=== PATIENT | female | born 1990 | race African-American/Black ===

== ENCOUNTER 2018-05-06 14:14 | Emergency (ER) | payer BC, OTHER ==
[~2018-05-06] VITALS: Ht 162.6 cm; Wt 86.2 kg
[~2018-05-06 14:14] MED LIST: ERYT1OIN6 OD
[2018-05-06] MEDS: IV NORMAL SALINE 1,000ML 1,000 ML IV SCH (15:01)
[2018-05-06] MEDS: ONDANSETRON PF 4 MG/2 ML VIAL. IV ONE (15:02)
[2018-05-06 15:11] LABS: BASO % 0 % (0-3); EOS % 0 % (0-3); HEMATOCRIT 37.2 % (36.0-47.0); HEMOGLOBIN 12.3 g/dL (12.0-15.5); LYMPH # 0.5 x10^3/uL (1.0-4.8); LYMPH % 3 % (24-48); MEAN CORPUSCULAR HEMOGLOBIN 29 pg (25-35); MEAN CORPUSCULAR HGB CONC 33 g/dL (31-37); MEAN CORPUSCULAR VOLUME 88 fL (79-100); MONO # 0.2 x10^3/uL (0.0-1.1); MONO % 1 % (0-9); NEUT # 15.9 x10^3uL (1.8-7.7); NEUT % 95 % (31-73); PLATELET COUNT 203 x10^3/uL (140-400); RED BLOOD COUNT 4.21 x10^6/uL (3.50-5.40); RED CELL DISTRIBUTION WIDTH 14.1 % (11.5-14.5); WHITE BLOOD COUNT 16.6 x10^3/uL (4.0-11.0)
--- NOTE | 2018-05-06 15:15 | PHYS DOC ---
Past History Past Medical History: Other Past Surgical History: Other Alcohol Use: None Drug Use: None Adult General Chief Complaint Chief Complaint: ABDOMINAL PAIN HPI HPI Patient is a 27-year-old female who presents with complaint of lower abdominal pain. Patient states that pain started yesterday and she was seen over at [facility] yesterday. She states that she was diagnosed with a UTI. Patient was prescribed ibuprofen and an antibiotic but she states that that is not helping with her pain. She rates pain at a 9 out of 10 and states the pain radiates up to the top of her abdomen and into her back. She denies any fever. She does indicate that she has been nauseated but has had no vomiting. She does admit to some constipation and states that her last bowel movement was yesterday. Review of Systems Review of Systems Constitutional: Denies fever or chills [] Respiratory: Denies cough or shortness of breath [] Cardiovascular: No additional information not addressed in HPI [] GI: Complains of abdominal pain with nausea. Denies vomiting or diarrhea [] : Complains of dysuria. [] Musculoskeletal: Complains of lower back pain [] All other systems were reviewed and found to be within normal limits, except as documented in this note. Current Medications Current Medications Current Medications Medications (Trade) Dose Ordered Sig/Bobbi Start Time Stop Time Status Last Admin Dose Admin Fentanyl Citrate (Fentanyl 2ml Vial) 25 mcg 1X ONCE 05/06/18 15:15 05/06/18 15:16 05/06/18 15:04 25 MCG Ondansetron HCl (Zofran) 4 mg 1X ONCE 05/06/18 15:15 05/06/18 15:16 05/06/18 15:02 4 MG Sodium Chloride 1,000 ml @ 1,000 mls/hr Q1H 05/06/18 14:45 05/06/18 15:44 05/06/18 15:01 1,000 MLS/HR Allergies Allergies Allergies Coded Allergies Type Severity Reaction Last Updated Verified Sulfa (Sulfonamide Antibiotics) Allergy Unknown 12/02/15 Yes lorazepam Allergy Unknown 12/02/15 Yes morphine Allergy Unknown 12/02/15 Yes oxycodone Allergy Unknown 12/02/15 Yes Physical Exam Physical Exam Constitutional: Well developed, well nourished, no acute distress, non-toxic appearance. [] HENT: Normocephalic, atraumatic, bilateral external ears normal, oropharynx moist, no oral exudates, nose normal. [] Eyes: PERRLA, EOMI, conjunctiva normal, no discharge. [] Neck: Normal range of motion, no tenderness, supple. [] Cardiovascular: Regular rate and rhythm [] Lungs & Thorax: Bilateral breath sounds clear to auscultation [] Abdomen: Bowel sounds normal, soft, with lower abdominal tenderness. [] Skin: Warm, dry, no erythema, no rash. [] Extremities: No tenderness, no cyanosis, no clubbing, ROM intact, no edema. [] Neurologic: Alert and oriented X 3, no focal deficits noted. [] Current Patient Data Vital Signs Vital Signs Date Time Temp Pulse Resp B/P (MAP) Pulse Ox O2 Delivery O2 Flow Rate FiO2 05/06/18 15:04 18 Room Air 05/06/18 14:59 101 97/59 (72) 100 05/06/18 14:15 99.3 EKG EKG [] Radiology/Procedures Radiology/Procedures [] Impressions: PROCEDURE: CT ABD PELV W/ IV CONTRST ONLY PQRS Compliance statement: One or more of the following individualized dose reduction techniques were utilized for this examination: 1. Automated exposure control. 2. Adjustment of the mA and/or kV according to patient size. 3. Use of iterative reconstruction technique. Indication:SEVERE UMBILICAL AND PELVIC PAIN X 2 DAYS, CONSTIPATION, nausea and vomiting TECHNIQUE: CT abdomen and pelvis with IV contrast with multiplanar reformats. COMPARISON: Previous exam from 01/29/2008 FINDINGS: Heart is normal in size. No pericardial or pleural effusion. Clear lung bases. Liver, spleen, gallbladder, pancreas, adrenals and kidneys are within normal limits. No enlarged retroperitoneal or pelvic adenopathy. No free pelvic fluid or ascites. Large amount of stool burden is seen in the distal colon. Nonspecific fluid-filled proximal colon and distal small bowel loops are seen. No bowel obstruction. No pneumoperitoneum or pneumatosis intestinalis. Anteverted uterus. Urinary bladder is within normal limits. Bilateral ovaries are seen with multiple follicles. Appendix is not visualized. No suspicious bony lesion. IMPRESSION: 1. Large amount of distal colonic stool burden, patient may be constipated. No bowel obstruction. 2. Appendix is not visualized. Electronically signed by: Shabbir Schaeffer DO (05/06/2018 4:31 PM) [facility] Course & Med Decision Making Course & Med Decision Making Pertinent Labs and Imaging studies reviewed. (See chart for details) [] Dragon Disclaimer Dragon Disclaimer This electronic medical record was generated, in whole or in part, using a voice recognition dictation system. Departure Departure: Impression: Primary Impression: Lower abdominal pain Additional Impressions: Constipation Urinary tract infection Disposition: HOME, SELF-CARE Condition: STABLE Referrals: EDD MATAMOROS (PCP) Patient Instructions: Abdominal Pain, Constipation, Adult, Urinary Tract Infection Scripts Ondansetron Hcl (ZOFRAN) 4 Mg Tablet 1 TAB PO Q8HRS PRN for NAUSEA, #12 TAB Prov: ESTEFANIA HERNÁNDEZ Jr. DO 05/06/18 Tramadol Hcl (TRAMADOL HCL) 50 Mg Tablet 50 MG PO PRN Q6HRS PRN for PAIN, #12 TAB Prov: ESTEFANIA HERNÁNDEZ Jr. DO 05/06/18 Lactulose (LACTULOSE) 10 Gm/15 Ml Solution 30 ML PO DAILYWBKFT PRN for CONSTIPATION, #900 ML Prov: ESTEFANIA HERNÁNDEZ Jr. DO 05/06/18 Problem Qualifiers Additional Impressions: Constipation Constipation type: unspecified constipation type Qualified Codes: K59.00 - Constipation, unspecified Urinary tract infection Urinary tract infection type: site unspecified Hematuria presence: without hematuria Qualified Codes: N39.0 - Urinary tract infection, site not specified ESTEFANIA HERNÁNDEZ Jr. DO May 06, 2018 15:15
[2018-05-06 15:22] LABS: ALBUMIN 3.5 g/dL (3.4-5.0); ALBUMIN/GLOBULIN RATIO 0.9 (1.0-1.7); CALCIUM 8.6 mg/dL (8.5-10.1); GFR 81.1; TOTAL BILIRUBIN 1.5 mg/dL (0.2-1.0); TOTAL PROTEIN 7.4 g/dL (6.4-8.2)
[2018-05-06 15:28] LABS: POTASSIUM 3.3 mmol/L (3.5-5.1)
[2018-05-06 15:39] LABS: % BANDS 17 % (0-9); % LYMPHS 9 % (24-48); % METAS 1 % (0-0); % SEGS 73 % (35-66); PLATELET CLUMP PRESENT; PLT ESTIMATE ADEQUATE (ADEQUATE)
[2018-05-06 15:41] LABS: TOXIC GRANULATION PRESENT
[2018-05-06 15:42] LABS: TOXIC VACUOLATION PRESENT
[2018-05-06] MEDS: IOHEXOL 300 MG/ML 75 ML VIAL. IV ONE (16:14)
[2018-05-06 16:26] LABS: BILIRUBIN,URINE NEG (NEG); CLARITY,URINE CLOUDY; COLOR,URINE AMBER; GLUCOSE,URINE NEG (NEG); NITRITE,URINE NEG (NEG); UROBILINOGEN,URINE 0.2 mg/dL (0.2 mg/dL)
[2018-05-06 16:27] LABS: BACTERIA,URINE FEW /HPF (0-FEW); RBC,URINE OCC /HPF (0-2); SQUAMOUS EPITHELIAL CELL,UR OCC /LPF
--- NOTE | 2018-05-06 16:35 | RAD ---
PQRS Compliance statement: One or more of the following individualized dose reduction techniques were utilized for this examination: 1. Automated exposure control. 2. Adjustment of the mA and/or kV according to patient size. 3. Use of iterative reconstruction technique. Indication:SEVERE UMBILICAL AND PELVIC PAIN X 2 DAYS, CONSTIPATION, nausea and vomiting TECHNIQUE: CT abdomen and pelvis with IV contrast with multiplanar reformats. COMPARISON: Previous exam from 01/29/2008 FINDINGS: Heart is normal in size. No pericardial or pleural effusion. Clear lung bases. Liver, spleen, gallbladder, pancreas, adrenals and kidneys are within normal limits. No enlarged retroperitoneal or pelvic adenopathy. No free pelvic fluid or ascites. Large amount of stool burden is seen in the distal colon. Nonspecific fluid-filled proximal colon and distal small bowel loops are seen. No bowel obstruction. No pneumoperitoneum or pneumatosis intestinalis. Anteverted uterus. Urinary bladder is within normal limits. Bilateral ovaries are seen with multiple follicles. Appendix is not visualized. No suspicious bony lesion. IMPRESSION: 1. Large amount of distal colonic stool burden, patient may be constipated. No bowel obstruction. 2. Appendix is not visualized. Electronically signed by: Shabbir Schaeffer DO (05/06/2018 4:31 PM) [facility]
[2018-05-06] MEDS: KETOROLAC 30 MG/ML VIAL. IV ONE (16:47)
[2018-05-06] MEDS ORDERED: TRAM50TA PO (16:54)
[2018-05-06] MEDS ORDERED: ONDA4TAB7 PO (16:54)
[2018-05-06] MEDS ORDERED: LACT10SO PO (16:54)
[2018-05-06] MEDS: MAGNESIUM CITRATE 296 ML SOLUTION. PO ONE (17:09)
[2018-05-06 17:14] VITALS: BP 103/71
== END 2018-05-06 17:10 | disposition home or self-care (01) ==
LOC: ER 14:14
DX: N39.0 Urinary tract infection, site not specified (principal); K59.00 Constipation, unspecified; Z88.2 Allergy status to sulfonamides; Z88.5 Allergy status to narcotic agent; Z88.8 Allergy status to other drugs, medicaments and biological substances
CPT/HCPCS: 36415; 74177; 80053; 81001; 81025; 83690; 85007; 85025; 96374; 96375; 99284; J1885; J2405; J3010; Q9967; 87086; J7030

== ENCOUNTER 2018-05-09 09:56 | Emergency (ER) | payer BC ==
[~2018-05-09] VITALS: Ht 162.6 cm; Wt 84.8 kg
[~2018-05-09 09:56] MED LIST changes: +LACT10SO PO; +ONDA4TAB7 PO; +TRAM50TA PO
[2018-05-09] MEDS ORDERED: IV NORMAL SALINE 1,000ML 1,000 ML IV SCH (10:11)
[2018-05-09 10:15] VITALS: BP 143/79
[2018-05-09] MEDS ORDERED: IOHEXOL 240 MG/ML 50ML VIAL. ONE (10:41)
[2018-05-09 10:55] LABS: BASO # 0.1 x10^3/uL (0.0-0.2); BASO % 0 % (0-3); EOS # 0.4 x10^3/uL (0.0-0.7); EOS % 2 % (0-3); HEMATOCRIT 35.3 % (36.0-47.0); HEMOGLOBIN 11.8 g/dL (12.0-15.5); LYMPH # 0.9 x10^3/uL (1.0-4.8); LYMPH % 5 % (24-48); MEAN CORPUSCULAR HEMOGLOBIN 29 pg (25-35); MEAN CORPUSCULAR HGB CONC 34 g/dL (31-37); MEAN CORPUSCULAR VOLUME 87 fL (79-100); MONO # 1.7 x10^3/uL (0.0-1.1); MONO % 9 % (0-9); NEUT # 15.7 x10^3uL (1.8-7.7); NEUT % 83 % (31-73); PLATELET COUNT 258 x10^3/uL (140-400); RED BLOOD COUNT 4.05 x10^6/uL (3.50-5.40); RED CELL DISTRIBUTION WIDTH 13.9 % (11.5-14.5); WHITE BLOOD COUNT 18.8 x10^3/uL (4.0-11.0)
[2018-05-09] MEDS ORDERED: IOHEXOL 300 MG/ML 75 ML VIAL. IV ONE (11:00)
[2018-05-09] MEDS ORDERED: KETOROLAC 30 MG/ML VIAL. IV ONE (11:00)
[2018-05-09 11:05] LABS: ALBUMIN 2.5 g/dL (3.4-5.0); ALBUMIN/GLOBULIN RATIO 0.5 (1.0-1.7); CALCIUM 8.5 mg/dL (8.5-10.1); GFR 81.1; TOTAL BILIRUBIN 0.5 mg/dL (0.2-1.0); TOTAL PROTEIN 7.3 g/dL (6.4-8.2)
[2018-05-09 11:51] LABS: % BANDS 8 % (0-9); % BASOS 0 % (0-3); % EOS 1 % (0-5); % LYMPHS 7 % (24-48); % MONOS 3 % (0-10); % MYELOS 2 % (0-0); % SEGS 79 % (35-66); PLATELET CLUMP PRESENT; PLT ESTIMATE ADEQUATE (ADEQUATE); TOXIC VACUOLATION PRESENT
[2018-05-09 12:48] LABS: BILIRUBIN,URINE NEG (NEG); CLARITY,URINE HAZY; COLOR,URINE YELLOW; GLUCOSE,URINE NEG (NEG); NITRITE,URINE NEG (NEG); UROBILINOGEN,URINE 0.2 mg/dL (0.2 mg/dL)
[2018-05-09 12:49] LABS: BACTERIA,URINE FEW /HPF (0-FEW); RBC,URINE OCC /HPF (0-2); SQUAMOUS EPITHELIAL CELL,UR MOD /LPF; YEAST,URINE PRESENT /HPF
--- NOTE | 2018-05-09 12:57 | PHYS DOC ---
Past History Past Medical History: Other Past Surgical History: Other Alcohol Use: None Drug Use: None General Pediatric Assessment Chief Complaint Abdominal pain History of Present Illness Patient is a 27 year old female who presents with pinning of lower abdominal pain since May 05. Patient complaining of right lower quadrant pain since May 05 and was seen at [facility] and was treated with diagnosis of UTI. Patient was seen on May 06 in this emergency room and had white count of 16,[address] of abdomen and pelvis with diagnosis of constipation and unseen appendix and discharged home with diagnosis of constipation. Patient states she had several bowel movement after taking lactulose but her abdominal pain did not get better and was seen by her primary care physician today who sent patient to emergency room for evaluation of possible appendicitis because of a normal CT of abdomen 4 days ago. Patient complaining of anorexia and nausea without vomiting, fever and chills, vaginal bleeding or discharge, urinary symptom. Review of Systems Constitutional: Denies fever or chills [] Eyes: Denies change in visual acuity, redness, or eye pain [] HENT: Denies nasal congestion or sore throat [] Respiratory: Denies cough or shortness of breath [] Cardiovascular: No additional information not addressed in HPI [] GI: Reports abdominal pain, nausea, denies vomiting, bloody stools or diarrhea [ ] : Denies dysuria or hematuria [] Musculoskeletal: Denies back pain or joint pain [] Integument: Denies rash or skin lesions [] Neurologic: Denies headache, focal weakness or sensory changes [] Endocrine: Denies polyuria or polydipsia [] All other systems were reviewed and found to be within normal limits, except as documented in this note. Current Medications Current Medications Medications (Trade) Dose Ordered Sig/Bobbi Start Time Stop Time Status Last Admin Dose Admin Fentanyl Citrate (Fentanyl 2ml Vial) 50 mcg 1X ONCE 05/09/18 12:00 05/09/18 12:01 DC 05/09/18 12:33 50 MCG Iohexol (Omnipaque 240 Mg/ml) 50 ml STK-MED ONCE 05/09/18 10:41 05/09/18 10:43 DC Iohexol (Omnipaque 300 Mg/ml) 75 ml 1X ONCE 05/09/18 11:00 05/09/18 11:01 DC 05/09/18 11:47 75 ML Ketorolac Tromethamine (Toradol 30mg Vial) 30 mg 1X ONCE 05/09/18 11:00 05/09/18 11:01 DC 05/09/18 10:43 30 MG Sodium Chloride 1,000 ml @ 1,000 mls/hr Q1H 05/09/18 10:11 05/09/18 11:10 DC 05/09/18 10:41 1,000 MLS/HR Allergies Allergies Coded Allergies Type Severity Reaction Last Updated Verified Sulfa (Sulfonamide Antibiotics) Allergy Unknown 05/06/18 Yes lorazepam Allergy Unknown 12/02/15 Yes morphine Allergy Unknown 12/02/15 Yes oxycodone Allergy Unknown 12/02/15 Yes Physical Exam Constitutional: Well developed, well nourished, moderate distress, non-toxic appearance. HENT: Normocephalic, atraumatic, dry oral mucosa, no oral exudates, nose normal. Eyes: PERLL, EOMI, conjunctiva normal, no discharge. Neck: Normal range of motion, no tenderness, supple, no stridor. Cardiovascular: Normal heart rate, normal rhythm, no murmurs, no rubs, no gallops. Thorax and Lungs: Normal breath sounds, no respiratory distress, no wheezing, no chest tenderness, no retractions, no accessory muscle use. Abdomen: Bowel sounds normal, mildly distended abdomen with generalized guarding and tenderness with more tenderness in the right lower quadrant rebound tenderness Skin: Warm, dry, no erythema, no rash. Back: No tenderness, no CVA tenderness. Extremeties: Intact distal pulses, no tenderness, no cyanosis, no clubbing, ROM intact, no edema. Musculoskeletal: Good ROM in all major joints, no tenderness to palpation or major deformities noted. Neurologic: Alert and oriented X 3, normal motor function, normal sensory function, no focal deficits noted. Psychologic: Affect normal, judgement normal, mood normal. Radiology/Procedures [address] [address] IMAGING REPORT Signed PATIENT: ISMAEL GALLEGOS ACCOUNT: [id number] : 1990 LOCATION: ER AGE: 27 SEX: F EXAM STATUS: REG ER ORD. PHYSICIAN: MICHAEL LOGAN MD REASON: lOWER ABDOMINAL AND PELVIC PAIN, WATERY STOOLS X 2 DAYS PROCEDURE: CT ABD PELV W/ORAL&IV CONTRAST Examination: CT ABD PELV W/ORAL IV CONTRAST History: WATERY STOOL SINCE SATURDAY, LOWER ABDOMEN AND PELVIC PAIN
GAVE OMNI 300 75ML IV AND OMNI 240 30ML ORAL Comparison/Correlation: 05/06/2018 CT abdomen pelvis with contrast Findings: Axial images of the abdomen and pelvis were obtained following IV contrast. Oral contrast was also utilized. Bibasilar costophrenic sulcus linear atelectasis is noted. Liver, spleen, pancreas, adrenal glands, and kidneys are normal. Contrast is identified within the stomach and proximal jejunum. Significantly distended loops of jejunum noted. Transition point is suggested within the lower pelvis is present. Distal collapsed small bowel loops are present. Moderate quantity of stool is present within the ascending colon. Appendix is not definitely delineated. Small amount of pelvic free fluid is present. Subtle rim enhancement is questioned involving this pelvic fluid. Urinary bladder is mostly decompressed. Adnexal follicles bilaterally are present in physiologic in appearance. Fluid is noted within the lower intraperitoneal cavity subjacent to the cecum along the lower left pelvic side wall. No extraluminal gas. No enlarged abdominal or pelvic lymph nodes. Bony structures are unremarkable for the patient's age. Impression: Interval development of small bowel obstruction with transition point within the mid pelvis. Ascites is noted subjacent to the cecum extending along the pelvic sidewall. Pelvic free fluid is present. Subtle rim enhancement. Underlying infectious etiology is questioned. Electronically signed by: Jefe Soares MD (05/09/2018 12:13 PM) [id number] DICTATED AND SIGNED BY: JEFE SOARES MD DATE: 05/09/18 1158 CC: MICHAEL LOGAN MD; EDD MATAMOROS ~ Current Patient Data Laboratory Tests Test 05/09/18 10:30 05/09/18 12:20 05/09/18 12:25 White Blood Count 18.8 x10^3/uL (4.0-11.0) H Red Blood Count 4.05 x10^6/uL (3.50-5.40) Hemoglobin 11.8 g/dL (12.0-15.5) L Hematocrit 35.3 % (36.0-47.0) L Mean Corpuscular Volume 87 fL (79-100) Mean Corpuscular Hemoglobin 29 pg (25-35) Mean Corpuscular Hemoglobin Concent 34 g/dL (31-37) Red Cell Distribution Width 13.9 % (11.5-14.5) Platelet Count 258 x10^3/uL (140-400) Neutrophils (%) (Auto) 83 % (31-73) H Lymphocytes (%) (Auto) 5 % (24-48) L Monocytes (%) (Auto) 9 % (0-9) Eosinophils (%) (Auto) 2 % (0-3) Basophils (%) (Auto) 0 % (0-3) Neutrophils # (Auto) 15.7 x10^3uL (1.8-7.7) H Lymphocytes # (Auto) 0.9 x10^3/uL (1.0-4.8) L Monocytes # (Auto) 1.7 x10^3/uL (0.0-1.1) H Eosinophils # (Auto) 0.4 x10^3/uL (0.0-0.7) Basophils # (Auto) 0.1 x10^3/uL (0.0-0.2) Segmented Neutrophils % 79 % (35-66) H Band Neutrophils % 8 % (0-9) Lymphocytes % 7 % (24-48) L Monocytes % 3 % (0-10) Eosinophils % 1 % (0-5) Basophils % 0 % (0-3) Myelocytes % 2 % (0-0) H Toxic Vacuolation Present Platelet Estimate Adequate (ADEQUATE) Platelet Clumps, EDTA Present Sodium Level 136 mmol/L (136-145) Potassium Level 3.0 mmol/L (3.5-5.1) L Chloride Level 100 mmol/L (98-107) Carbon Dioxide Level 27 mmol/L (21-32) Anion Gap 9 (6-14) Blood Urea Nitrogen 18 mg/dL (7-20) Creatinine 1.0 mg/dL (0.6-1.0) Estimated GFR (Cockcroft-Gault) 81.1 BUN/Creatinine Ratio 18 (6-20) Glucose Level 84 mg/dL (70-99) Calcium Level 8.5 mg/dL (8.5-10.1) Total Bilirubin 0.5 mg/dL (0.2-1.0) Aspartate Amino Transf (AST/SGOT) 10 U/L (15-37) L Alanine Aminotransferase (ALT/SGPT) 13 U/L (14-59) L Alkaline Phosphatase 59 U/L (46-116) Total Protein 7.3 g/dL (6.4-8.2) Albumin 2.5 g/dL (3.4-5.0) L Albumin/Globulin Ratio 0.5 (1.0-1.7) L Lipase 88 U/L (73-393) Urine Collection Type Unknown Urine Color Yellow Urine Clarity Hazy Urine pH 6.0 Urine Specific [place] 1.020 Urine Protein 100 mg/dl (NEG-TRACE) Urine Glucose (UA) Neg mg/dL (NEG) Urine Ketones (Stick) Neg mg/dL (NEG) Urine Blood Trace (NEG) Urine Nitrite Neg (NEG) Urine Bilirubin Neg (NEG) Urine Urobilinogen Dipstick 0.2 mg/dL (0.2 mg/dL) Urine Leukocyte Esterase Neg (NEG) Urine RBC Occ /HPF (0-2) Urine WBC 1-4 /HPF (0-4) Urine Squamous Epithelial Cells Mod /LPF Urine Bacteria Few /HPF (0-FEW) Urine Yeast Present /HPF Bedside Urine HCG, Qualitative hcg negative (Negative) Active Scripts Medications Dose Route/Sig Max Daily Dose Days Date Category Zofran (Ondansetron Hcl) 4 Mg Tablet 1 Tab PO Q8HRS PRN 05/06/18 Rx Tramadol Hcl (Tramadol HCl) 50 Mg Tablet 50 Mg PO PRN Q6HRS PRN 05/06/18 Rx Lactulose 10 Gm/15 Ml Solution 30 Ml PO DAILYWBKFT PRN 05/06/18 Rx Erythromycin (Erythromycin Base) 3.5 Gm Oint...g. 1 Huma OD QID 4 12/02/15 Rx Vital Signs Date Time Temp Pulse Resp B/P (MAP) Pulse Ox O2 Delivery O2 Flow Rate FiO2 05/09/18 10:15 98.7 83 20 97 Room Air 05/09/18 12:33 0.0 Vital Signs Date Time Temp Pulse Resp B/P (MAP) Pulse Ox O2 Delivery O2 Flow Rate FiO2 05/09/18 12:33 18 96 Room Air 0.0 05/09/18 10:15 98.7 83 20 97 Room Air Vital Signs Date Time Temp Pulse Resp B/P (MAP) Pulse Ox O2 Delivery O2 Flow Rate FiO2 05/09/18 12:33 18 96 Room Air 0.0 05/09/18 10:15 98.7 83 Course & Med Decision Making Pertinent Labs and Imaging studies reviewed. (See chart for details) Evolution of patient in ER showed 27-year-old female patient with right lower quadrant pain for several days and several ER and doctors visits. patient had white count of 18,000 with generalized abdominal tenderness and guarding. CT of abdomen and pelvis did not show appendix but showing small bowel obstruction and free fluid in pelvis and ascites. Dr. Pitt accepted admission to [facility] at [address]36. Dr. Hackett on-call surgeon was consulted at 1251 and agreed with plan of transfer. Departure Departure: Impression: Primary Impression: Lower abdominal pain Disposition: 02 XFER [facility] (to [facility] at 1237) Admitting Physician: Javier Pitt (accepted transfer to [facility] at 1236) Condition: GUARDED Referrals: EDD MATAMOROS (PCP) MICHAEL LOGAN MD May 09, 2018 12:57
[2018-05-09] MEDS ORDERED: IV NORMAL SALINE 50ML 50 ML ONE (13:27)
[2018-05-09] MEDS ORDERED: PIPERACILLIN/TAZOBACTAM 3.375 GM VIAL IV ONE (13:27)
[2018-05-09] MEDS ORDERED: PIPERACILLIN/TAZOBACTAM 3.375 GM in IV NORMAL SALINE 50ML 50 ML IV ONE (13:45)
--- NOTE | 2018-05-09 13:58 | RAD ---
Examination: CT ABD PELV W/ORAL IV CONTRAST History: WATERY STOOL SINCE SATURDAY, LOWER ABDOMEN AND PELVIC PAIN
GAVE OMNI 300 75ML IV AND OMNI 240 30ML ORAL Comparison/Correlation: 05/06/2018 CT abdomen pelvis with contrast Findings: Axial images of the abdomen and pelvis were obtained following IV contrast. Oral contrast was also utilized. Bibasilar costophrenic sulcus linear atelectasis is noted. Liver, spleen, pancreas, adrenal glands, and kidneys are normal. Contrast is identified within the stomach and proximal jejunum. Significantly distended loops of jejunum noted. Transition point is suggested within the lower pelvis is present. Distal collapsed small bowel loops are present. Moderate quantity of stool is present within the ascending colon. Appendix is not definitely delineated. Small amount of pelvic free fluid is present. Subtle rim enhancement is questioned involving this pelvic fluid. Urinary bladder is mostly decompressed. Adnexal follicles bilaterally are present in physiologic in appearance. Fluid is noted within the lower intraperitoneal cavity subjacent to the cecum along the lower left pelvic side wall. No extraluminal gas. No enlarged abdominal or pelvic lymph nodes. Bony structures are unremarkable for the patient's age. Impression: Interval development of small bowel obstruction with transition point within the mid pelvis. Ascites is noted subjacent to the cecum extending along the pelvic sidewall. Pelvic free fluid is present. Subtle rim enhancement. Underlying infectious etiology is questioned. Electronically signed by: Jefe Little MD (05/09/2018 12:13 PM) [id number]
== END 2018-05-09 13:40 | disposition short-term general hospital (02) ==
LOC: ER 09:56
DX: R10.31 Right lower quadrant pain (principal); R10.84 Generalized abdominal pain; R19.7 Diarrhea, unspecified; K56.609 Unspecified intestinal obstruction, unspecified as to partial versus complete obstruction; R18.8 Other ascites; Z88.2 Allergy status to sulfonamides; Z88.5 Allergy status to narcotic agent; Z88.8 Allergy status to other drugs, medicaments and biological substances
CPT/HCPCS: 36415; 74177; 80053; 81001; 81025; 83690; 85007; 85025; 96361; 96374; 96375; 96376; 99285; J1885; J2543; J3010; Q9967; 96365; J7030

== ENCOUNTER → 2020-08-02 | Outpatient (CLI) | payer BC ==
[~2020-08-02] MED LIST changes: -LACT10SO PO; +LACT10SO2 PO
--- NOTE | 2020-08-02 17:00 | RAD ---
EXAM: First Trimester OB Ultrasound INDICATION: Reason: 1ST TRIMESTER PREG, UNSURE OF DATES / Spl. Instructions: / History: TECHNIQUE: Real-time first trimester obstetrical ultrasound was performed with permanent freeze-frame documentation. Transabdominal and endovaginal ultrasound was performed. COMPARISON: None. FINDINGS: GESTATIONAL SAC: Gestational sac shape and amniotic fluid volume within normal limits. POLE: pole not well seen. Yolk sac visualized. CROWN RUMP LENGTH: Not well seen HEART RATE: Not well seen PLACENTA: Too early to adequately assess. MATERNAL UTERUS: Unremarkable. It measures 7.6 x 4.4 x 3.5 cm. MATERNAL ADNEXA: Unremarkable. Small amount of simple pelvic free fluid in the cul-de-sac is noted. Right ovary measures 3.2 x 2.4 x 2.4 cm and demonstrates normal flow. Left ovary measures 4.0 x 2.7 x 2.6 cm and demonstrates normal flow. AGE/DATES: Gestational Age by LMP: Unknown Gestational Age by US: 5 weeks 5 days EDC by LMP: Unknown EDC by US: 03/30/2021 IMPRESSION: Intrauterine gestation with yolk sac but no pole identified, likely due to early gestation. Estimated gestational age of 5 weeks 5 days and EDC of 03/30/2021. Electronically signed by: Adolfo Jaquez MD (08/02/2020 4:58 PM) [id number]
== END ==
LOC: US 10:47
PROVIDERS: ATTEND Obstetrics & Gynecology
DX: Z34.91 Encounter for supervision of normal pregnancy, unspecified, first trimester (principal); Z3A.01 Less than 8 weeks gestation of pregnancy
CPT/HCPCS: 76801; 76817

== ENCOUNTER → 2020-10-18 | Outpatient (CLI) | payer BC | LOC: LAB 15:33 | PROVIDERS: ATTEND Obstetrics & Gynecology | DX: Z34.92 Encounter for supervision of normal pregnancy, unspecified, second trimester (principal) | CPT/HCPCS: 36415; 81511; 86850; 86900; 86901 ==

== ENCOUNTER → 2020-11-17 | Outpatient (CLI) | payer BC ==
--- NOTE | 2020-11-18 17:42 | RAD ---
Exam performed: OB sonogram second trimester. Indication: Anatomical scan. Date of Service: 11/17/2020 Comparison: None available. Technique: Transabdominal . Findings: Single intrauterine fetus is seen in cephalic presentation. The maturity is as follows. BPD 4.9 cm 21 weeks 0 days Head circumference 17.73 cm 20 weeks 1 day Abdominal circumference 16.32 cm 21 weeks 3 days Femur length 3.57 cm 21 weeks 2 days HC to AC ratio is 1.09 (between 1.09 and 1.26) Estimated weight is 408 grams. The composite maturity is 21 weeks and 0 days with a sonographic EDC of 03/30/2021 There is adequate amniotic fluid volume with ELIANE of 18.5 cm. The cervical length measures 3.7cm. heart rate measures 136 beats per minute. Normal movement and cardiac activity seen. Normal four-chamber heart is seen Normal three-vessel cord is seen. Abdominal wall cord insertion is normal Fluid-filled stomach and urinary bladder are seen. Bilateral kidneys are normal. Normal craniocervical junction and entire spine is identified Placenta is posterior, no previa Impression: Single live intrauterine fetus in cephalic presentation of maturity 21 weeks and 0 days with no defin ite abnormality Electronically signed by: Bailye Cervantes MD (11/18/2020 5:40 PM) [facility]
== END ==
LOC: US 14:46
PROVIDERS: ATTEND Obstetrics & Gynecology
DX: Z34.92 Encounter for supervision of normal pregnancy, unspecified, second trimester (principal); Z3A.21 21 weeks gestation of pregnancy
CPT/HCPCS: 76805

== ENCOUNTER 2020-12-27 01:51 | Emergency (ER) | payer BC ==
[~2020-12-27] VITALS: Ht 162.6 cm; Wt 89.0 kg
[~2020-12-27 01:51] MED LIST changes: +ERYT1OIN3 OD; -ERYT1OIN6 OD
[2020-12-27 03:09] VITALS: BP 117/68
--- NOTE | 2020-12-27 05:52 | PHYS DOC ---
Past History Past Medical History: Other Past Surgical History: No Surgical History Alcohol Use: None Drug Use: None Adult General Chief Complaint Chief Complaint: CONSTIPATION HPI HPI Patient is a 30 year old female who presents with constipation. She is 25 weeks and has been having constipation for the last couple of weeks. She is taken 1 dose of Dulcolax and Colace about an hour prior to arrival but no relief. She otherwise has slight fullness in the abdomen but no real abdominal acute pain. She denies any dysuria. She denies any vaginal bleeding or discharge. She states that the has been normal thus far. She denies any fever, cough, back pain, nausea or vomiting. She denies any diarrhea. Review of Systems Review of Systems Constitutional: Denies fever or chills [] Eyes: Denies change in visual acuity, redness, or eye pain [] HENT: Denies nasal congestion or sore throat [] Respiratory: Denies cough or shortness of breath [] Cardiovascular: No additional information not addressed in HPI [] GI: Denies abdominal pain, nausea, vomiting, bloody stools or diarrhea [] : Denies dysuria or hematuria [] Musculoskeletal: Denies back pain or joint pain [] Integument: Denies rash or skin lesions [] Neurologic: Denies headache, focal weakness or sensory changes [] All other systems were reviewed and found to be within normal limits, except as documented in this note. Allergies Allergies Allergies Coded Allergies Type Severity Reaction Last Updated Verified Sulfa (Sulfonamide Antibiotics) Allergy Unknown 05/06/18 Yes lorazepam Allergy Unknown 12/02/15 Yes morphine Allergy Unknown 12/02/15 Yes oxycodone Allergy Unknown 12/02/15 Yes Physical Exam Physical Exam Constitutional: no acute distress HENT: Normocephalic, atraumatic, bilateral external ears emory Eyes: PERRLA, EOMI, conjunctiva normal, no discharge. Neck: Normal range of motion, no tenderness, supple, no stridor. Cardiovascular:Heart rate regular rhythm, no murmur [] Lungs & Thorax: Bilateral breath sounds clear to auscultation [] Abdomen: Gravid but nontender, bowel sounds are present and normal. Skin: Warm, dry, no erythema, no rash. [] Back: No tenderness, no CVA tenderness. Extremities: No tenderness, no cyanosis, no clubbing, ROM intact, no edema. [] Neurologic: Alert and oriented X 3, normal motor function, normal sensory function, no focal deficits noted. Current Patient Data Vital Signs Vital Signs Date Time Temp Pulse Resp B/P (MAP) Pulse Ox O2 Delivery O2 Flow Rate FiO2 12/27/20 03:09 97 18 117/68 (84) 98 Room Air 12/27/20 02:02 98.2 EKG EKG [] Radiology/Procedures Radiology/Procedures [] Heart Score C/O Chest Pain: No Risk Factors: Risk Factors: DM, Current or recent (<one month) smoker, HTN, HLP, family history of CAD, obesity. Risk Scores: Risk Factors: DM, Current or recent (<one month) smoker, HTN, HLP, family history of CAD, obesity. Course & Med Decision Making Course & Med Decision Making Patient presented with constipation while being . She is taking just 1 dose of laxative at home prior to arrival. She is hemodynamically stable and I do not believe that she requires any further work-up. I have instructed her to take additional dose of Dulcolax and if need to enema at home. If she needs further help she can call her [employer]IC[employer] physician or come back to the emergency department. She was discharged in stable condition. Dragon Disclaimer Dragon Disclaimer This electronic medical record was generated, in whole or in part, using a voice recognition dictation system. Departure Departure: Impression: Primary Impression: Constipation during Disposition: 01 HOME / SELF CARE / HOMELESS Condition: STABLE Patient Instructions: Constipation, Adult Additional Instructions: you should take additional 2 tablets of dulcolax and if that does not help, give your self an enema. If further problems, call your OB doctor or come back to ER Problem Qualifiers Primary Impression: Constipation during Trimester: second trimester Qualified Codes: O99.612 - Diseases of the digestive system complicating , second trimester; K59.00 - Constipation, unspecified EMELINA COSTELLO MD Dec 27, 2020 05:52
== END 2020-12-27 03:10 | disposition home or self-care (01) ==
LOC: ER 01:51
DX: O99.612 Diseases of the digestive system complicating pregnancy, second trimester (principal); K59.00 Constipation, unspecified; Z3A.25 25 weeks gestation of pregnancy; Z88.5 Allergy status to narcotic agent; Z88.2 Allergy status to sulfonamides; Z88.8 Allergy status to other drugs, medicaments and biological substances
CPT/HCPCS: 99282

== ENCOUNTER → 2021-01-13 | Outpatient (CLI) | payer BC ==
[2020-12-27 03:09] VITALS: BP 117/68
[2021-01-13 15:22] LABS: BASO % 0 % (0-3); EOS # 0.2 x10^3/uL (0.0-0.7); EOS % 2 % (0-3); HEMATOCRIT 34.2 % (36.0-47.0); HEMOGLOBIN 11.6 g/dL (12.0-15.5); LYMPH # 1.6 x10^3/uL (1.0-4.8); LYMPH % 19 % (24-48); MEAN CORPUSCULAR HEMOGLOBIN 31 pg (25-35); MEAN CORPUSCULAR HGB CONC 34 g/dL (31-37); MEAN CORPUSCULAR VOLUME 91 fL (79-100); MONO # 0.6 x10^3/uL (0.0-1.1); MONO % 7 % (0-9); NEUT # 6.1 x10^3uL (1.8-7.7); NEUT % 72 % (31-73); PLATELET COUNT 179 x10^3/uL (140-400); RED BLOOD COUNT 3.74 x10^6/uL (3.50-5.40); RED CELL DISTRIBUTION WIDTH 13.3 % (11.5-14.5); WHITE BLOOD COUNT 8.5 x10^3/uL (4.0-11.0)
== END ==
LOC: LAB 13:36
PROVIDERS: ATTEND Obstetrics & Gynecology
DX: Z34.93 Encounter for supervision of normal pregnancy, unspecified, third trimester (principal); Z3A.00 Weeks of gestation of pregnancy not specified
CPT/HCPCS: 36415; 82950; 85025

== ENCOUNTER → 2021-02-14 | Outpatient (CLI) | payer BC ==
[2021-02-14 16:54] LABS: BASO % 0 % (0-3); EOS # 0.2 x10^3/uL (0.0-0.7); EOS % 2 % (0-3); HEMATOCRIT 33.9 % (36.0-47.0); HEMOGLOBIN 11.3 g/dL (12.0-15.5); LYMPH # 1.3 x10^3/uL (1.0-4.8); LYMPH % 16 % (24-48); MEAN CORPUSCULAR HEMOGLOBIN 31 pg (25-35); MEAN CORPUSCULAR HGB CONC 33 g/dL (31-37); MEAN CORPUSCULAR VOLUME 92 fL (79-100); MONO # 0.6 x10^3/uL (0.0-1.1); MONO % 7 % (0-9); NEUT # 6.3 x10^3uL (1.8-7.7); NEUT % 75 % (31-73); PLATELET COUNT 159 x10^3/uL (140-400); RED BLOOD COUNT 3.68 x10^6/uL (3.50-5.40); RED CELL DISTRIBUTION WIDTH 13.8 % (11.5-14.5); WHITE BLOOD COUNT 8.4 x10^3/uL (4.0-11.0)
[2021-02-14 17:09] LABS: ALBUMIN 2.7 g/dL (3.4-5.0); ALBUMIN/GLOBULIN RATIO 0.7 (1.0-1.7); CALCIUM 8.3 mg/dL (8.5-10.1); CREATININE 0.6 mg/dL (0.6-1.0); POTASSIUM 3.6 mmol/L (3.5-5.1); TOTAL BILIRUBIN 0.2 mg/dL (0.2-1.0); TOTAL PROTEIN 6.5 g/dL (6.4-8.2); URIC ACID 3.9 mg/dL (2.6-6.0)
== END ==
LOC: LAB 15:54
PROVIDERS: ATTEND Obstetrics & Gynecology
DX: Z34.93 Encounter for supervision of normal pregnancy, unspecified, third trimester (principal); Z3A.00 Weeks of gestation of pregnancy not specified
CPT/HCPCS: 36415; 80053; 83615; 84550; 85025